=== PATIENT | female | born 1990 | race Caucasian/White ===

== ENCOUNTER 2018-11-18 14:40 | Emergency (ER) | payer OTHER ==
[2018-11-18 14:48] VITALS: BP 119/70
--- NOTE | 2018-11-18 15:02 | ER Document Report ---
HPI - HPI Patient complains to provider of: Vaginal itch urinary frequency Time Seen by Provider: 11/18/18 14:50 Onset: Last week Onset/Duration: Persistent Quality of pain: Burning, Other - itchy Severity: Mild Pain Level: 2 Context: Patient presents emergency department with complaints of vaginal irritation. Reports that symptoms started with itching a little burn around her vaginal opening. Now she is having some clear vaginal discharge with possible odor. She reports urinary frequency and pain with void. She also reports she has been having diarrhea past 2 to 3 days to 3 times a day. Denies fever vomiting. Reports she just finished her menstrual cycle. She is sexually active with one partner and uses condoms for protection. Associated Symptoms: None Exacerbated by: Other - void Relieved by: Denies Similar symptoms previously: No Recently seen / treated by doctor: No - REPRODUCTIVE Reproductive: DENIES: : Past Medical History - General Information source: Patient Last Menstrual Period: just finished - Social History Smoking Status: Unknown if Ever Smoked Cigarette use (# per day): No Frequency of alcohol use: None Drug Abuse: None Family History: None Patient has suicidal ideation: No Patient has homicidal ideation: No - Medical History Medical History: Negative Past Surgical History: Reports: Hx Gynecologic Surgery Vertical Provider Document - CONSTITUTIONAL Agree With Documented VS: Yes Exam Limitations: No Limitations General Appearance: WD/WN, No Apparent Distress - INFECTION CONTROL TRAVEL OUTSIDE OF THE [place] IN LAST 30 DAYS: No - HEENT HEENT: Atraumatic, Normocephalic. negative: Conjuctival Injection - NECK Neck: Normal Inspection, Supple. negative: Lymphadenopathy-Left, Lymphadenopathy-Right - RESPIRATORY Respiratory: Breath Sounds Normal, No Respiratory Distress - CARDIOVASCULAR Cardiovascular: Regular Rate, Regular Rhythm - GI/ABDOMEN Gastrointestinal: Abdomen Soft, Abdomen Non-Tender - REPRODUCTIVE Female Genitalia: Normal Inspection - BACK Back: Normal Inspection. negative: CVA Tenderness-Right, CVA Tenderness-Left - MUSCULOSKELETAL/EXTREMETIES Musculoskeletal/Extremeties: ZAY MANZO - NEURO Level of Consciousness: Awake, Alert, Appropriate Motor/Sensory: No Motor Deficit - DERM Integumentary: Warm, Dry Course - Re-evaluation Re-evalutation: 11/18/18 16:05 UA shows leukocytes wet mount positive for BV negative tract negative yeast. Patient instructed on Macrobid and Flagyl. Instructed to follow-up for recheck with her [employer]. She verbalized understanding. Dictation of this chart was performed using voice recognition software; therefore, there may be some unintended grammatical errors. - Vital Signs Vital signs: Temp Pulse Resp BP Pulse Ox 98.5 F 100 16 119/70 97 11/18/18 14:47 11/18/18 14:47 11/18/18 14:47 11/18/18 14:47 11/18/18 14:47 Procedures - Pelvic Exam Pelvic exam Time completed: 15:26 Cultures obtained: No Wet prep obtained: Yes Herpes culture obtained: No POC sent to lab: No Foreign body removed: No Bimanual exam performed: Yes Witnessed by: chon REYEZ Discharge - Discharge Clinical Impression: Vaginal irritation, Bacterial vaginosis UTI (urinary tract infection) Qualifiers: Urinary tract infection type: site unspecified Hematuria presence: with hematuria Qualified Code(s): N39.0 - Urinary tract infection, site not specified Condition: Stable Disposition: HOME, SELF-CARE Instructions: Metronidazole ([facility]), Nitrofurantoin ([facility]), [facility] [place], Urinary Tract Infection ([facility]), Vaginosis, Bacterial ([facility]) Additional Instructions: *You have been evaluated for vaginal irritation, Bacterial vaginosis, UTI *The STD cultures are pending. You will be contacted should you need further treatment. *Take medication as prescribed *Follow up with your [employer] or the health department for recheck *Avoid sexual intercourse until follow up *Return to ED for worsening condition, changes, needs Prescriptions: Metronidazole [Flagyl 500 mg Tablet] 500 mg PO BID #14 tablet Nitrofurantoin/Nitrofuran Mac [Macrobid 100 mg Capsule] 100 mg PO BID #20 capsule
[2018-11-18 15:28] LABS: APPEARANCE,URINE SLIGHTLY-CLOUDY; BILIRUBIN,URINE NEGATIVE (NEGATIVE); COLOR,URINE STRAW; GLUCOSE, URINE NEGATIVE (NEGATIVE); KETONES,URINE NEGATIVE (NEGATIVE); LEUKOCYTE ESTERASE,URINE LARGE (NEGATIVE); NITRITE,URINE NEGATIVE (NEGATIVE); PROTEIN,URINE NEGATIVE (NEGATIVE); URINE SPECIFIC GRAVITY 1.003; UROBILINOGEN,URINE NEGATIVE mg/dL (<2.0)
[2018-11-18 15:40] LABS: BACTERIA (WET MOUNT) 4+ BACTERIA SEEN; EPITHELIALS (WET MOUNT) 3+ EPITHELIALS SEEN; RBCS (WET MOUNT) RARE RBCS SEEN; T.VAGINALIS (WET MOUNT) NO TRICHOMONAS SEEN; WBCS (WET MOUNT) 1+ WBCS SEEN; YEAST (WET MOUNT) NO YEAST SEEN
[2018-11-18] MEDS ORDERED: NITROFURANTOIN MONOHYD/M-CRYST 100 MG CAPSULE PO ONE (16:02)
[2018-11-18] MEDS ORDERED: METRONIDAZOLE 500 MG TABLET PO ONE (16:02)
[2018-11-18 17:24] LABS: CHLAM PCR NOT DETECTED (NOT DETECT)
== END 2018-11-18 16:12 | disposition home or self-care (01) ==
LOC: ER 14:40
DX: N39.0 Urinary tract infection, site not specified (principal); N76.0 Acute vaginitis; B96.89 Other specified bacterial agents as the cause of diseases classified elsewhere; R35.0 Frequency of micturition; R19.7 Diarrhea, unspecified
CPT/HCPCS: 99283; 87210; 81025; 81001; 87491; 87591; J8499